=== PATIENT | female | born 1975 | race Caucasian/White ===

== ENCOUNTER → 2023-10-14 | Outpatient (CLI) | payer BC, OTHER | LOC: M PLAIMG 14:52 | PROVIDERS: ATTEND Physician Assistant Medical | DX: M50.33 Other cervical disc degeneration, cervicothoracic region (principal) ==

== ENCOUNTER 2024-09-20 09:28 | Emergency (ER) | payer OTHER, BC ==
[~2024-09-20] VITALS: Ht 157.5 cm; Wt 66.4 kg
[2024-09-20] MEDS ORDERED: ISOVUE-370 76% 100ML VIAL As Ordered ONE (10:08)
[2024-09-20] MEDS: BOOSTRIX VACCINE (TETANUS/DIPHTH/ACEL. PERTUSSIS) 0.5ML SYR IM.IMMUN ONE (10:46)
[2024-09-20] MEDS: KETOROLAC 30 MG/ML 1ML VIAL IV ONE (10:47)
[2024-09-20] MEDS ORDERED: CETI10CA2 PO (11:16)
[2024-09-20] MEDS ORDERED: ONETAB PO (11:16)
[2024-09-20] MEDS ORDERED: VITA500C24 PO (11:16)
[2024-09-20] MEDS ORDERED: TIZA10TA (11:17)
[2024-09-20] MEDS ORDERED: BACIOIN23 TOP (11:27)
[2024-09-20] MEDS ORDERED: IBUP1TAB6 PO (11:27)
[2024-09-20 11:45] VITALS: BP 124/82
[2024-09-20 11:47] VITALS: TEMP 97.5; O2SAT 97
== END 2024-09-20 11:54 | disposition home or self-care (01) ==
LOC: M ED 09:28 → EDBD 09:28 → M ED 11:54
DX: S20.212A Contusion of left front wall of thorax, initial encounter (principal); S00.212A Abrasion of left eyelid and periocular area, initial encounter; R91.1 Solitary pulmonary nodule; Y92.410 Unspecified street and highway as the place of occurrence of the external cause; Y93.9 Activity, unspecified; Y99.9 Unspecified external cause status; V49.00XA Driver injured in collision with unspecified motor vehicles in nontraffic accident, initial encounter; Z23 Encounter for immunization; Z79.1 Long term (current) use of non-steroidal anti-inflammatories (NSAID); Z79.810 Long term (current) use of selective estrogen receptor modulators (SERMs); Z79.899 Other long term (current) drug therapy
CPT/HCPCS: 70450; 71260; 72125; 74177; 80047; 90471; 90715; 96374; 99284; J1885; Q9967